=== PATIENT | male | born 1965 ===

== ENCOUNTER 2025-03-18 14:32 | Emergency (ER) | payer SELFPAY ==
--- OUTSIDE RECORDS SUMMARY | 2025-03-19 03:49 | XMS_ITS | Continuity of Care Document ---
Author Organization [facility] Address [address] [place] [id number] Phone Care Team Providers Care Cotton Expert Name Role Phone Stalzer OD, Junior Unavailable Unavailable Allergies, Adverse Reactions, Alerts Substance Reaction Status Criticality No Known Allergies Active No Inform ation Medications Medication Instructions Dosage Effective Dates (start - stop) Status Comments No Drug Therapy Prescribed Procedures Procedure Date Determination of refractive state Comprehensive eye exam, estab. patient J Intermediate eye exam, established patie nt Intermediate eye exam, established patie nt Intermediate eye exam, established patie nt Comprehensive eye exam, estab. patient M Determination of refractive state Intermediate eye exam, new patient Advance Directives Directive Yes / No Effective Date File Name No Information Encounters Encounter Description Practice Location Reason(s) For Visit Diagnoses Date Provider Providers Copied on Encounter [facility], [address] [place] [address], [id number], tel:[phone] [facility] Cataracts (chief complaint) Cataract, nuclear, bilateralDry eye syndrome of bilateral lacrimal glands Stamercedez Pacheco. [facility], [facility], [address] [place] [address], [id number], [place]. tel:[phone] [facility], [address] [place] [address], [id number], [place] tel:[phone] [facility] yearly comp exam (chief complaint) Angular blepharoconjun ctivitis, bilateralPresb yopia Mar-2 4-202 3 Presleymelany Albright. [facility], [facility], [address], [place], [place], [id number], [place]. tel:[phone] [facility], [address] [place] [address], [id number], [place] tel:[phone] [facility] Following Cataracts (chief complaint) Angular blepharoconjun ctivitis, bilateralPresb yopia Mar-2 2-202 2 Presley Jose Ramon. [facility], [facility], [facility], [place], [place], [id number], [place]. tel:[phone] [facility], [address] [place] [address], [id number], [place] tel:[phone] [facility] eye& vision exam (chief complaint) Cataract, nuclear, bilateralPresb yopia Mar-1 2-202 1 Presleymelany Albright. [facility], [facility], [facility], [place], [place], [id number], [place]. tel:[phone] [facility], [address] [place] [address], [id number], [place] tel:[phone] [facility] Presbyopia (chief complaint) Cataract, nuclear, bilateral Mar-0 202 0 *RETIRED* Strnad Lyse. [facility], [facility], [address] [place] [address], [id number], [place]. [phone] [facility], [address] [place] [address], [id number], [place] tel:[phone] [facility] decreased vision (chief complaint) Presbyopia Aug-0 1-201 7 Colin Akers. [facility], [facility], [address] [place] [address], [id number], [place]. tel:[phone] Family History Family Member Type Diagnosis Age At Onset Maternal grandmother Problem (finding) glaucoma Immunizations Vaccine Date Status Comments Influenza, high dose seasonal administere d Source: Other Provider Payers Payer name Insurance type Covered republican ID Authorsaritha colindres(s) [place] [employer] PEGGY [id number] Social History Type Description Quantity Date Captured Comments Alcohol Use Details Unknown Caffeine Use Details Unknown Tobacco Use Status Current non-smoker Smoking Status Never smoker Sex Male Chief Complaint And Reason For Visit From encounter dated '01/29/2025 10:00'. Cataracts (chief complaint). Description: The 59 year old male presents for evaluation of Cataracts.Cataracts - Not yet bothersome. Pt. reports stable vision. Denies using eye drops. Denies pain or discomfort. Reason For Referral Reason For Referral No Information History Of Present Illness Encounter Date Complaint History Of Prese nt Illness Cataracts The 59 year old male presents for evaluation of Cataracts.Cataracts - Not yet bothersome. Pt. reports stable vision. Denies using eye drops. Denies pain or discomfort. yearly comp exam The 56 year old male presents for evaluation of yearly comp exam in the right eye and left eye. Last seen about 1 year(s) ago. It occurs all the time. The onset was progressive. It affects OU. The symptom is constant. The condition is stable. states that vision maybe has decreased a bit. glasses broke, so would need new MRx. no pain or discomfort in ou. no questions or concerns at this time. Following Cataracts The 55 year old male presents for evaluation of Following Cataracts in the right eye and left eye. It started about 1 year(s) ago. It occurs all the time. It affects OU. The symptom is constant. The condition is stable. Patient denies eye pain. Pt reports stable vision. Denies any discomfort OU. Denies any discomfort OU. eye& vision exam The 54 year old male presents for evaluation of eye& vision exam in the right eye and left eye. It started about 1 year(s) ago. It occurs always. The onset was gradual. It affects OU. The symptom is constant. The condition is mild. Patient denies eye pain, flashes and floaters.pt hasn't notice change in vision and has no complaintspt not uisng at Presbyopia The 53 year old male presents for evaluation of Presbyopia in the right eye and left eye. It started about 3 year(s) ago. It occurs always. The onset was gradual. It affects OU. The symptom is constant. The condition is stable.Pt reports no dva or nva complaints cc. Pt denies floaters, flashes, discomfort. Ocular meds: none decreased vision The 51 year old male presents for evaluation of decreased vision in the right eye and left eye. It started about 1 year(s) ago. It occurs all the time. The onset was gradual. It affects OU. The symptom is constant. The condition is mild. Patient denies flashes and floaters.hard seeing at near and intermediate Functional Status Date Functional Assessmen t No Information Medications Administered Medication Instructions Dosage Effective Dates (start - stop) Status Comments No Drug Therapy Prescribed Instructions Date Instruction Additional Infor selin Impression/Plan Related to Catar act, nuclear, bilateral Impression/Plan Related to Dry e ye syndrome of bilateral lacrimal glands Return in 1-2 years Related to A ngular blepharoconjunctivitis, bilateral Impression/Plan Related to Angul ar blepharoconjunctivitis, bilateral Impression/Plan Related to Presb yopia Return in 1-2 years Related to A ngular blepharoconjunctivitis, bilateral Impression/Plan Related to Angul ar blepharoconjunctivitis, bilateral Impression/Plan Related to Presb yopia Return in 1 year Related to Ana Laura ract, nuclear, bilateral Impression/Plan Related to Catar act, nuclear, bilateral Impression/Plan Related to Presb yopia Impression/Plan Related to Catar act, nuclear, bilateral Impression/Plan - di scussed glasses, contacts, refrative surgeryrx for glasses given, consider cl eval wtih spo. Related to Presbyopia Assessments Type Assessment Date assessment Cataract, nuclear, bilateral Jan assessment Dry eye syndrome of bilateral la crimal glands impression Cataract, nuclear, bilateral: H2 5.13 impression Dry eye syndrome of bilateral la crimal glands: H04.123 Patient Care Teams Name Effective Dates (start - stop) Status Members No Information
== END 2025-03-18 14:33 | disposition left against medical advice (07) ==
LOC: ANHED 03-19 03:48
DX: Z53.21 Procedure and treatment not carried out due to patient leaving prior to being seen by health care provider (principal)
CPT/HCPCS: 99199